=== PATIENT | female | born 1950 | race Caucasian/White ===

== ENCOUNTER 2024-04-17 10:47 | Outpatient (CLI) | payer MEDICARE, BC, SELFPAY | END 2024-04-17 10:48 | disposition home or self-care (01) | LOC: INJ CL 10:49 | PROVIDERS: Visit Provider Family Medicine | DX: M54.16 Radiculopathy, lumbar region (principal); M48.062 Spinal stenosis, lumbar region with neurogenic claudication | CPT/HCPCS: 62323; J0702; Q9966 ==

== ENCOUNTER 2024-12-28 10:17 | Outpatient (CLI) | payer MEDICARE, BC, SELFPAY | END 2024-12-28 10:18 | disposition home or self-care (01) | LOC: INJ CL 10:17 | PROVIDERS: Visit Provider Family Medicine | DX: M54.16 Radiculopathy, lumbar region (principal); M51.369 Other intervertebral disc degeneration, lumbar region without mention of lumbar back pain or lower extremity pain | CPT/HCPCS: 62323; J0702; Q9966 ==